=== PATIENT | female | born 1935 | race Two or more races ===

== ENCOUNTER 2023-10-03 13:39 | Emergency (ER) | payer MEDICARE, OTHER ==
[~2023-10-03] VITALS: Ht 162.6 cm; Wt 60.5 kg
[2023-10-03 13:55] VITALS: BP 132/44; RESP 16; O2SAT 99
[2023-10-03 14:01] VITALS: PULSE 67
== END 2023-10-03 15:42 | disposition home or self-care (01) ==
LOC: ER 13:39
DX: N64.4 Mastodynia (principal); I10 Essential (primary) hypertension
CPT/HCPCS: 93005